=== PATIENT | male | born 1995 | race Caucasian/White ===

== ENCOUNTER 2023-06-21 20:29 | Emergency (ER) | payer OTHER ==
[2023-06-21] MEDS ORDERED: HYDROmorphone 1 MG/ML Syringe IM ONE (20:45)
== END 2023-06-21 22:58 | disposition other institution (70) ==
LOC: JP.ED 20:29
DX: S22.070A Wedge compression fracture of T9-T10 vertebra, initial encounter for closed fracture (principal); W18.30XA Fall on same level, unspecified, initial encounter
CPT/HCPCS: 72125; 72128; 76377; 96372; 99284; J1170